=== PATIENT | female | born 1965 | race Caucasian/White ===

== ENCOUNTER 2016-03-03 14:04 | Outpatient (CLI) | payer BC ==
[~2016-03-03 14:04] MED LIST: DOLOPHINE10 MG PO; EPIPEN 2-PAK0.3 MG IM; LEVOTHYROXINE75 MCG PO; MILK THISTLE140 MG PO; NEXIUM40 M1 PO; OXYCODONE HCL E15 MG PO; PHENERGAN12.5 M1 PO; PROZAC40 MG PO; SENOKOT8.6 MG PO; SUCRALFATE1 GM PO; SUMATRIPTAN SUC50 MG PO
--- NOTE | 2016-03-03 14:29 | DIAGNOSTIC IMAGING REPORT ---
PROCEDURE: XR CHEST 2 VIEW INDICATION: COUGH TECHNIQUE: PA and lateral views. COMPARISON: None. FINDINGS: Lungs are clear. Heart and mediastinum are normal. Thorax is normal. IMPRESSION: 1. Negative chest.
== END 2016-03-03 23:00 ==
LOC: XR SRH 14:04
DX: R05 Cough (principal)

== ENCOUNTER 2016-04-06 19:45 | Emergency (ER) | payer BC ==
--- NOTE | 2016-04-06 22:28 | ED ORDER SUMMARY ---
..... Patient: DAVI MEDELLIN OrderSheet [facility] VisitID: [id number] [address] [place] [address] 50y, F Registration Date/Time: 04/06/2016 ORDER SHEET Weight: 69.4 kg (measured) Allergies: Codeine, Morphine Sulfate GENERAL ORDERS: Booking Agent (Continuous) (LOC) (20:05 04/06/2016 Prisca R.N. verbal order read back to Sushma RENEE) (20:05 Nehemiaselli R.N.) CBC w Diff Urgent (20:05 04/06/2016 Prisca R.N. verbal order read back to Sushma RENEE) (20:05 Prisca R.N.) CMP Urgent (20:05 04/06/2016 Prisca R.N. verbal order read back to Sushma RENEE) (20:05 Nehemiaselli R.N.) UA-Culture if indicated Urgent (20:05 04/06/2016 Prisca R.N. verbal order read back to Sushma RENEE) (Ack 20:11 [employer] ER Drilling Assistant) (22:43 JBullard R.N.) (Cancelled: Unable to [id number]:43 JBullard R.N.) Urine Urgent (20:05 04/06/2016 Prisca R.N. verbal order read back to Sushma RENEE) (Ack 20:11 [employer] ER Drilling Assistant) (22:43 JBullard R.N.) (Cancelled: Unable to Ujbfhql75:43 JBullard R.N.) Oxygen (2 L/min) (NC) (20:05 04/06/2016 Prisca R.N. verbal order read back to Sushma RENEE) (20:05 Prisca R.N.) Pulse oximeter (20:05 04/06/2016 Prisca R.N. verbal order read back to Sushma RENEE) (20:05 Prisca R.N.) EKG - ER Stat (20:05 04/06/2016 Prisca R.N. verbal order read back to Sushma RENEE) (20:05 Prisca R.N.) POC Glucose (20:05 04/06/2016 Prisca R.N. verbal order read back to Sushma RENEE) (20:05 Prisca R.N.) POC Glucose (21:03 04/06/2016 Sushma RENEE) (21:20 IJurca ER Tech1) MEDICATION ORDERS: IV FLUIDS: IV Saline Lock (20:02 04/06/2016 Prisca R.N. verbal order read back to Sushma RENEE) (20:06 Prisca R.N.) Narcan IV 0.4 mg (HIGH ALERT MEDICATION, NOW) (20:03 04/06/2016 Prisca R.N. verbal order read back to Sushma RENEE) (20:09 Prisca R.N.) D-50 IV 25 gm (NOW, IVP) (20:03 04/06/2016 Prisca R.N. verbal order read back to Sushma RENEE) (20:08 Prisca R.N.) IV Saline Lock (20:05 04/06/2016 Prisca R.N. verbal order read back to Sushma RENEE) (20:07 Prisca R.N.) ORDER SHEET NOTES: [Electronically signed by Zelalem Queen R.N. (22:45 04/06/2016)] [Electronically signed by Mar Clifford MD (13:46 04/10/2016)] [Electronically locked/signed by Zelalem Queen R.N. (22:45 04/06/2016)]
--- NOTE | 2016-04-06 22:28 | ED NURSING NOTES ---
Clinical Report - Nurses [facility] [place] [address] 04/06/2016 19:47 Patient: DAVI MEDELLIN TRIAGE <<STRICKEN ENTRY-- Triage time 19:50 Apr 06 2016. Acuity: LEVEL 3. Chief Complaint: DRUG OVERDOSE and ACCIDENTAL INGESTION. Alert. LOUISE COMA SCORE: Louise Coma Scale: 15- eyes open spontaneously (4); best verbal response- oriented x 4 (5); best motor response- obeys commands (6). --20:18 Mayank Baugh R.N. --END STRIKE>> Correction --22:19 Mayank Baugh R.N. 19:57 04/06/16. BP: 107/61. HR: 78. RR: 16. O2 saturation: 95% on nasal cannula at 2 liters/minute. Temp: 97.5 F. Pain level now: 0/10. --20:18 Mayank Baugh R.N. Chief Complaint: (Hypoglycemia and Lethargic Affect). --22:24 Mayank Baugh R.N. Weight: 69.4 kg measured. Height/Length: 66 inches Per Patient. BMI: 24.7. --19:59 Mayank Baugh R.N. Medications Levoxyl Oral 75 mcg, daily. NexIUM Oral 20 mg, daily. --20:12 Mayank Baugh R.N. Methadone HCl Oral 55mg, daily. --20:13 Mayank Baugh R.N. OxyCODONE HCl Oral 15mg, as needed (breakthrough pain). --20:13 Mayank Baugh R.N. Allergies Codeine. Morphine Sulfate. --20:12 Mayank Baugh R.N. History Arrived by private vehicle. Historian: patient. ( Possible OD). This occurred just prior to arrival and today. Admits to having hallucinations. No suicidal thoughts. 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 PAST MEDICAL HX: Last normal menstrual period was 3 weeks ago. Denies current . SOCIAL HX: Light tobacco smoker (cigarette)- less than 1/2 a pack per day. No alcohol use or drug use. No infectious disease exposure. ABUSE ASSESSMENT: No report of abuse. FALL RISK ASSESSMENT: Fall risk assessment completed. No fall risk identified. NUTRITIONAL RISK ASSESSMENT: The nutritional risk assessment revealed no deficiencies. FUNCTIONAL ASSESSMENT: Functional assessment: no impairments noted. LEARNING NEEDS ASSESSMENT: The learning needs assessment revealed no barriers. SKIN INTEGRITY ASSESSMENT: Skin integrity risk assessment completed. No skin integrity risk identified. --20:18 Mayank Baguh R.N. ( Lethargic affect and Hypoglycemia.). --22:20 Mayank Baugh R.N. PROBLEMS: Anxiety Reaction. Gastroesophageal Reflux Disease. Hypokalemia. Pain management. Insomnia. Mental Illness. --20:16 Mayank Baugh R.N. Bipolar Disorder [RuleOut]. --20:16 Mayank Baugh R.N. ADDITIONAL SURGERIES: (R) leg. Adenoidectomy. Tonsillectomy. --20:16 Mayank Baugh R.N. Interventions ID band on patient. To treatment room. --20:18 Mayank Baugh R.N. PHYSICAL ASSESSMENT Ambulatory to room. GENERAL / NEURO / PSYCH: Alert. Oriented X 4. Patient appears calm and cooperative. Gag reflex present. Speech within normal limits. RESPIRATORY: Respirations not labored. Breath sounds within normal limits. CVS: Normal sinus rhythm noted. GI / : Abdomen soft and nontender. Bowel sounds within normal limits. SKIN: Skin intact. Skin is warm and dry. Skin color is within normal limits. --20:19 Mayank Baugh R.N. NURSING PROGRESS NOTES 19:51 04/06/2016 Site #1 started via IV in the left antecubital space with an 20g angiocath, with aseptic technique and good blood return; two attempts. Blood drawn: rainbow set. Labeled in the presence of the patient and sent to the lab. Saline lock flushed with 10 mL saline. --20:06 Mayank Baugh R.N. 19:57 04/06/2016 Site #2 started via IV in the right hand with an 22g angiocath, with aseptic technique and good blood return; one attempt. Blood drawn: rainbow set. Labeled in the presence of the patient and sent to the lab. Saline lock flushed with 10 mL saline (start by Edie Paniagua RN). --20:07 Mayank Baugh R.N. 19:58 04/06/2016 D-50 IVP 1 Amp given over 4 minute(s) via site #2. Allergies verified and confirmed 5 rights. IV patency established. IV site checked: no pain, redness, or swelling. IV flushed thoroughly pre- and post-medication administration. IVP given by RN. --20:08 Mayank Baugh R.N. 19:59 04/06/2016 Narcan (Naloxone HCl) IVP 0.4 mg given over 2 minute(s) via site #1. Allergies verified and confirmed 5 rights. IV patency established. IV site checked: no pain, redness, or swelling. IV flushed thoroughly pre- and post-medication administration. IVP given by RN. --20:09 Mayank Baugh R.N. Patient gowned. Reassurance given. Patient identifiers checked. Call light placed in reach. Side rails up. Bed placed in lowest position. Brakes of bed on. Patient ready for evaluation- chart flagged and ED physician notified. --20:20 Mayank Baugh R.N. Point of care testing: performed by nurse. Glucose: 170. Result shown to the ED physician. --20:24 Mayank Baugh R.N. EKG time: (2025). EKG was ordered, performed by a tech and shown to the ED physician. --20:39 [facility], Tech1 Point of care testing: performed by tech. Glucose: 87. Result shown to the ED physician and RN. --21:21 Jos Garneraiah, ER Tech1. DISPOSITION / DISCHARGE Departure time: 2243. No learning barriers present. Discharge instructions provided and reviewed with the patient and spouse. Reviewed warnings. Reviewed medication(s). Treatments reviewed. Reviewed referrals. Reviewed diet. Activity restrictions reviewed. Patient and spouse verbalized understanding. Written instructions provided in Bengali. The patient was discharged by the physician. She was discharged home and accompanied by spouse. She left the Emergency Department ambulatory and via private vehicle. Spouse driving. --22:45 Zelalem Queen R.N. 22:43 04/06/16. BP: 110/56. HR: 66. RR: 14. O2 saturation: 99%. Temp: 98 F. Pain level now 0/10. --22:45 Zelalem Queen R.N. Locked/Released at 04/06/2016 22:45 by Zelalem Queen R.N.
--- NOTE | 2016-04-06 22:28 | ED CLINICAL REPORT ---
Clinical Report - Physicians/Mid Levels [facility] [address] [place] [address] 04/06/2016 19:47 Patient: DAVI MEDELLIN Time Seen: 19:55. Arrived- By private vehicle. Historian- patient. HISTORY OF PRESENT ILLNESS Chief Complaint: CHANGED MENTAL STATUS. The patient has been confused and "felt strange" and is described as having decreased responsiveness. This started just prior to arrival and is still present. The patient was not found unresponsive. No history of chronic dementia. No alcohol recently, recent drug use or medication given prior to arrival. ( states he and pt were watching TV and "getting playful" when pt stated she was beginning to feel "strange". She reported hallucinating, and then began staring off and not responding. is not aware of pt taking extra oxycodone or methadone (pt is on these for chronic leg pain after multiple surgeries). No history of hypoglycemic episodes previously. Pt has been nauseated for a few days, and has not been eating anything.). No weakness, numbness or recent fall. No difficulty walking. Usually is alert and oriented X3 and usually has normal mobility. Similar symptoms previously: None. Recent medical care: Not recently seen/assessed. REVIEW OF SYSTEMS No fever, headache, head injury, dizziness or chest pain. No difficulty breathing, cough, sputum production, blurred vision or sore throat. No abdominal pain, diarrhea, black stools, difficulty with urination or skin rash. No joint pain, vomiting, bloody stools or back pain. The patient has had nausea. Pt is able to answer ROS questions later in visit. All systems otherwise negative, except as recorded above. PAST HISTORY Problems: Chronic pain. Bipolar Disorder. Anxiety Reaction. Gastroesophageal Reflux Disease. Hypokalemia. Insomnia. Immunizations. LNMP - Last Normal Menstrual Period. Additional Surgeries: (R) leg. Adenoidectomy. Tonsillectomy. Medications: OxyCODONE HCl Oral 15mg, as needed (breakthrough pain). Methadone HCl Oral 55mg, daily. Levoxyl Oral 75 mcg, daily. NexIUM Oral 20 mg, daily. Allergies: Codeine. Morphine Sulfate. SOCIAL HISTORY Smoker- current status unknown. No alcohol use or drug use. ADDITIONAL NOTES The nursing notes have been reviewed. PHYSICAL EXAM Vital Signs: 04/06/2016 19:57 BP: 107/61. HR: 78. RR: 16. O2 saturation: 95%. Temp: 97.5 F. Pain level now: 0/10. Have been reviewed. Appearance: No acute distress. Lethargic. Head: Head atraumatic. Eyes: Pupils equal, round and reactive to light. ENT: Normal ENT inspection. Airway intact. Moist mucous membranes. Neck: Normal inspection. CVS: Normal heart rate and rhythm. Heart sounds normal. Pulses normal. Respiratory: No respiratory distress. Breath sounds normal. Abdomen: Soft and nontender. Back: Normal inspection. Skin: Skin warm and dry. Normal skin color. No rash. Normal skin turgor. Extremities: No lower extremity edema. Neuro: Alertness is decreased(drowsy). No motor deficit. No sensory deficit. LABS, X-RAYS, AND EKG EKG: EKG time: (2025). No acute process. No acute ischemia. Normal sinus rhythm. Normal P waves. Normal RUPERT. Normal QRS complex. Normal axis. Normal ST and T waves, QT and QTc. Prior EKG unavailable. The study has been interpreted contemporaneously by me. The study has been independently viewed by me. The EKG appears to be a good tracing. Rhythm Strip #1: Time: (2018). Rate= 82. Normal sinus rhythm. Regular rhythm. Narrow QRS complexes. No ectopy. Conduction normal. Normal ST segments and T waves. The study was interpreted by me. Laboratory Tests: CBC w Diff: (TWAN: 04/06/2016 19:58) ( MsgRcvd 04/06/2016 20:21) Final results Test Result Flag Units (Reference) WHITE BLOOD COUNT 9.3 K/uL (4.5-11.5) RED BLOOD COUNT 4.29 M/uL (4.00-5.20) HEMOGLOBIN 12.9 gm/dL (12.0-16.0) HEMATOCRIT 39.0 % (36.0-46.0) MEAN CELL VOLUME 91 fL (80-100) MEAN CORPUSCULAR HGB 30 pg (26-34) MEAN CORPUSCULAR HGB CONC 33 g/dL (31-37) RED CELL DISTRIBUTION WIDTH 15.0 H % (11.6-14.8) PLATELET COUNT 317 K/uL (150-400) NEUTROPHIL % 60.6 % (50-75) LYMPH % 23.4 L % (25-40) MONO % 10.5 % (3-14) EOSINOPHIL % 4.7 H % (0-4) BASOPHIL % 0.8 % (0-2) CMP: (TWAN: 04/06/2016 19:58) ( MsgRcvd 04/06/2016 20:30) Final results Test Result Flag Units (Reference) GLUCOSE 37 *L mg/dL (70-110) CRITICAL RESULTS CALLEDCalled to JESS WILKS R.N. 04/06/162028Were 2 patient identifiers used? YWas the result read back? Y BUN 10 mg/dL (7-18) CREATININE 0.6 mg/dL (0.6-1.3) Estimated GFR >60 mL/min Estimated GFR- >60 mL/min Note: Persistent reduction over 3 months in eGFR<60 mL/min/1.73 m2 defines CKD. Patients with eGFR values>=60 mL/min/1.73 m2 may also have CKD if evidence ofpersistent proteinuria. Additional information may be foundat www.kidney.org. SODIUM 131 L mmol/L (136-145) POTASSIUM 4.1 mmol/L (3.5-5.1) SLIGHT HEMOLYSIS PRESENT CHLORIDE 95 L mmol/L (98-107) CARBON DIOXIDE 24 mmol/L (21-32) CALCIUM 8.4 L mg/dL (8.5-10.1) TOTAL PROTEIN 7.7 g/dL (6.4-8.2) ALBUMIN 3.7 g/dL (3.3-5.0) BILIRUBIN, TOTAL 0.2 mg/dL (0.0-1.0) ALKALINE PHOSPHATASE 71 U/L (46-116) AST (SGOT) 28 U/L (15-37) ALT (SGPT) 26 U/L (12-78) . Pulse Oximetry: 04/06/2016 19:57 O2 saturation: 95%. (FIO2 - room air). Interpretation: normal. PROGRESS AND PROCEDURES Course of Care: PT was evaluated immediately upon arrival in the ED. IV's were immediately placed, and pt was given 0.4 mg of Narcan, after which she became more awake, but not more coherent. At the same time, pt's blood sugar was found to be <30, so pt was given IV D-50, 1 amp. She did become coherent after this, and was able to give more history. Pt was observed in the ED and serial blood sugars were checked, without further hypoglycemia. Pt's sugars were noted to be trending down, however, so she was given a meal to eat. Remainder of work-up was negative. Pt's last blood glucose level was normal, and I did feel she was stable for d/c home. I have advised her that if she has any further hypoglycemic episodes, she will need further testing to determine the cause. Patient and spouse counseled in person regarding the patient's stable condition, test results, diagnosis and need for follow-up. Concerns were addressed. Old medical records reviewed. Disposition: Discharged. Condition: stable and improved. CLINICAL IMPRESSION Hypoglycemia without coma. Not associated with type 1 diabetes or type 2 diabetes. INSTRUCTIONS Warnings: GENERAL WARNINGS: Return or contact your physician immediately if your condition worsens or changes unexpectedly, if not improving as expected, or if other problems arise. Your Current Medications: CONTINUE TAKING THE FOLLOWING MEDICATIONS: Levoxyl Oral : 75 mcg daily. Methadone HCl Oral : 55mg daily. NexIUM Oral : 20 mg daily. OxyCODONE HCl Oral : 15mg, prn, breakthrough pain. Prescription Medications: Zofran (orally disintegrating tablets) 4 mg: take 1-2 orally every 6 hours as needed for nausea. Dispense fifteen (15). No refill. Substitution is permissible. Follow-up: Follow up with your doctor in. Call for the next available appointment. Reason for referral: Follow up hypoglycemia/ER visit. Understanding of the discharge instructions verbalized by patient and family. (Electronically signed by Mar Clifford MD 04/10/2016 13:46)
--- NOTE | 2016-04-06 22:28 | ED ORDER SUMMARY ---
..... Patient: DAVI MEDELLIN OrderSheet [facility] VisitID: [id number] [address] [place] [address] 50y, F Registration Date/Time: 04/06/2016 ORDER SHEET Weight: 69.4 kg (measured) Allergies: Codeine, Morphine Sulfate GENERAL ORDERS: Java Portal Developer (Continuous) (LOC) (20:05 04/06/2016 Prisca R.N. verbal order read back to Sushma RENEE) (20:05 Nehemiaselli R.N.) CBC w Diff Urgent (20:05 04/06/2016 Prisca R.N. verbal order read back to Sushma RENEE) (20:05 Prisca R.N.) CMP Urgent (20:05 04/06/2016 Prisca R.N. verbal order read back to Sushma RENEE) (20:05 Nehemiaselli R.N.) UA-Culture if indicated Urgent (20:05 04/06/2016 Prisca R.N. verbal order read back to Sushma RENEE) (Ack 20:11 [employer] ER Registration Representative) (22:43 JBullard R.N.) (Cancelled: Unable to Kyuopbt87:43 JBullard R.N.) Urine Urgent (20:05 04/06/2016 Prisca R.N. verbal order read back to Sushma RENEE) (Ack 20:11 [employer] ER Registration Representative) (22:43 JBullard R.N.) (Cancelled: Unable to Nldipol70:43 JBullard R.N.) Oxygen (2 L/min) (NC) (20:05 04/06/2016 Prisca R.N. verbal order read back to Sushma RENEE) (20:05 Prisca R.N.) Pulse oximeter (20:05 04/06/2016 Prisca R.N. verbal order read back to Sushma RENEE) (20:05 Prisca R.N.) EKG - ER Stat (20:05 04/06/2016 Prisca R.N. verbal order read back to Sushma RENEE) (20:05 Prisca R.N.) POC Glucose (20:05 04/06/2016 Prisca R.N. verbal order read back to Sushma RENEE) (20:05 Prisca R.N.) POC Glucose (21:03 04/06/2016 Sushma RENEE) (21:20 IJurca ER Tech1) MEDICATION ORDERS: IV FLUIDS: IV Saline Lock (20:02 04/06/2016 Prisca R.N. verbal order read back to Sushma RENEE) (20:06 Prisca R.N.) Narcan IV 0.4 mg (HIGH ALERT MEDICATION, NOW) (20:03 04/06/2016 Prisca R.N. verbal order read back to Sushma RENEE) (20:09 Prisca R.N.) D-50 IV 25 gm (NOW, IVP) (20:03 04/06/2016 Prisca R.N. verbal order read back to Sushma RENEE) (20:08 Prisca R.N.) IV Saline Lock (20:05 04/06/2016 Prisca R.N. verbal order read back to Sushma RENEE) (20:07 Prisca R.N.) ORDER SHEET NOTES: [Electronically signed by Zelalem Queen R.N. (22:45 04/06/2016)] [Electronically signed by Mar Clifford MD (13:46 04/10/2016)] [Electronically locked/signed by Zelalem Queen R.N. (22:45 04/06/2016)]
--- NOTE | 2016-04-10 13:46 | ED MED RECONCILIATION SUMMARY ---
Patient: DAVI MEDELLIN Medication Reconciliation Report [facility] VisitID: [id number] [address] [place] [address] 50y, F Registration Date/Time: 04/06/2016 Weight: 69.4 kg Height/Length: 66 in. BMI: 24.7 ALLERGIES: Codeine, Morphine Sulfate The patient's Home Medications are listed below: CONTINUE TAKING THE FOLLOWING MEDICATIONS: Levoxyl Oral 75 mcg, daily Methadone HCl Oral 55mg, daily NexIUM Oral 20 mg, daily OxyCODONE HCl Oral 15mg, breakthrough pain The source(s) of the original Home Medication information: Not obtained. The following Medications were given to the patient in the Emergency Department: D-50 [IVP] IVP 1 Amp, administered: 04/06/2016 7:58:00 PM Narcan [IVP] IVP 0.4 mg, administered: 04/06/2016 7:59:00 PM The following Medications were prescribed to the patient: Zofran (orally disintegrating tablets) 4 mg: take 1-2 orally every 6 hours as needed for nausea. Dispense fifteen (15). No refill. Substitution is permissible. -- Mar Clifford MD
--- NOTE | 2016-04-10 13:46 | ED DISCHARGE INSTRUCTIONS ---
Patient: DAVI MEDELLIN General Instructions [facility] VisitID: [id number] [place] [address] 50y, F Registration Date/Time: 04/06/2016 Hypoglycemia without coma. Not associated with type 1 diabetes or type 2 diabetes. INSTRUCTIONS Warnings: GENERAL WARNINGS: Return or contact your physician immediately if your condition worsens or changes unexpectedly, if not improving as expected, or if other problems arise. Your Current Medications: CONTINUE TAKING THE FOLLOWING MEDICATIONS: Levoxyl Oral : 75 mcg daily. Methadone HCl Oral : 55mg daily. NexIUM Oral : 20 mg daily. OxyCODONE HCl Oral : 15mg, prn, breakthrough pain. Prescription Medications: Zofran (orally disintegrating tablets) 4 mg: take 1-2 orally every 6 hours as needed for nausea. Dispense fifteen (15). No refill. Substitution is permissible. Follow-up: Follow up with your doctor in. Call for the next available appointment. Reason for referral: Follow up hypoglycemia/ER visit. Understanding of the discharge instructions verbalized by patient and family. ADDITIONAL INFORMATION Hypoglycemic Reaction [Non-Diabetic] You have had an episode of LOW BLOOD SUGAR (hypoglycemia). A single episode of hypoglycemia does not mean that you are diabetic or that this problem will recur. There are many causes for low blood sugar. These include eating highly refined carbohydrate foods, drinking too much alcohol, intense exercise, fatigue, stress, poor diet, and certain illnesses. Some people are sensitive to the following, which can also lower blood sugar: Tobacco, caffeine and certain medicines [aspirin, Haldol (haloperidol), Darvon (propoxyphene), Thorazine (chlorpromazine), Inderal (propranolol), Norpace (disopyramide)]. A class of medicine called beta blockers is used for high blood pressure, rapid heart rates and other conditions. Beta blockers may prevent the early symptoms of low blood sugar. In that case, you would not know that you were having a reaction until your blood sugar becomes dangerously low. If you are taking a beta mohsen and are prone to low blood sugar, talk to your doctor about switching to a different class. The beta mohsen class includes Inderal (propranolol), Tenormin (atenolol), Lopressor (metoprolol), Corgard (nadolol), Trandate & Normodyne (labetalol) and Coreg (carvedilol). Home Care: Rest today and resume a normal diet. Eliminate any of the above known causes where possible. The proper diet for true hypoglycemia (diagnosed with a Glucose Tolerance Test) is high protein (20% of calories), low carbohydrate (50% of calories) and moderate fat (30% of calories) in six small meals per day. If this is your first episode of low blood sugar or if you have not yet been tested with a Glucose Tolerance Test, eat small frequent meals rather than fewer large meals. Limit carbohydrates during the next 1-2 days to avoid recurrence of low blood sugar. Follow up with your doctor as described below. It is important to learn the warning signals your body gives as your blood sugar starts to drop. See below. If you are prone to low blood sugar, carry a source of high sugar food with you in case you get symptoms of low blood sugar again. At the first sign of low blood sugar, eat the sugar source to raise your blood sugar while you seek medical help. Examples of high sugar foods include: Glucose tablets (found at most drug stores), non-diet cola drinks (Coke, Pepsi, etc.), milk chocolate candies, hard candies, orange juice or apple juice with added sugar. If this does not improve your symptoms within twenty minutes, go to an emergency department. If you are prone to severe hypoglycemic spells, wear a medical alert bracelet or carry a card in your wallet describing this condition. In the event that you have a severe hypoglycemic reaction and are unable to give this information, it will help medical personnel provide proper care. Follow Up with your doctor or as advised by our staff for further testing if the cause of your low blood sugar is not clear or if this problem recurs. A Glucose Tolerance Test is the best way to correctly diagnose Hypoglycemia. Get Prompt Medical Attention if any of the following occur: Signs of LOW BLOOD SUGAR: Fatigue, headache Trembling, excess sweating, hunger, feeling anxious or restless Vision changes Drowsiness, weakness, confusion or loss of consciousness You have been given the following additional information: Hypoglycemia, Non Diabetic (Electronically signed by Mar Clifford MD 04/10/2016 13:46)
--- NOTE | 2016-04-10 13:46 | ED MAR SUMMARY ---
..... Medication Administration Record [facility] [address] [place] [address] Patient: DAVI MEDELLIN Visit ID: [id number] 50y, F Weight: 69.4 kg Height/Length: 66 in BMI: 24.7 ALLERGIES: Codeine, Morphine Sulfate Given 19:58 04/06/2016 Mayank Baugh RMuluN. Medication Administered: D-50 [IVP], Dose: 1 Amp IVP over 4 minute(s), Site: #2 right hand. Medication Ordered: D-50 IV 25 gm (NOW, IVP). Given 19:59 04/06/2016 Mayank Baugh, R.N. Medication Administered: NARCAN [IVP] (NALOXONE HCL), Dose: 0.4 mg IVP over 2 minute(s), Site: #1 left AC. Medication Ordered: Narcan IV 0.4 mg (HIGH ALERT MEDICATION, NOW).
--- NOTE | 2016-04-10 13:46 | ED MED RECONCILIATION SUMMARY ---
Patient: DAVI MEDELLIN Medication Reconciliation Report [facility] VisitID: [id number] [address] [place] [address] 50y, F Registration Date/Time: 04/06/2016 Weight: 69.4 kg Height/Length: 66 in. BMI: 24.7 ALLERGIES: Codeine, Morphine Sulfate The patient's Home Medications are listed below: CONTINUE TAKING THE FOLLOWING MEDICATIONS: Levoxyl Oral 75 mcg, daily Methadone HCl Oral 55mg, daily NexIUM Oral 20 mg, daily OxyCODONE HCl Oral 15mg, breakthrough pain The source(s) of the original Home Medication information: Not obtained. The following Medications were given to the patient in the Emergency Department: D-50 [IVP] IVP 1 Amp, administered: 04/06/2016 7:58:00 PM Narcan [IVP] IVP 0.4 mg, administered: 04/06/2016 7:59:00 PM The following Medications were prescribed to the patient: Zofran (orally disintegrating tablets) 4 mg: take 1-2 orally every 6 hours as needed for nausea. Dispense fifteen (15). No refill. Substitution is permissible. -- Mar Clifford MD
--- NOTE | 2016-04-10 13:46 | ED MAR SUMMARY ---
..... Medication Administration Record [facility] [address] [place] [address] Patient: DAVI MEDELLIN Visit ID: [id number] 50y, F Weight: 69.4 kg Height/Length: 66 in BMI: 24.7 ALLERGIES: Codeine, Morphine Sulfate Given 19:58 04/06/2016 Mayank Baugh RMuluN. Medication Administered: D-50 [IVP], Dose: 1 Amp IVP over 4 minute(s), Site: #2 right hand. Medication Ordered: D-50 IV 25 gm (NOW, IVP). Given 19:59 04/06/2016 Mayank Baugh, R.N. Medication Administered: NARCAN [IVP] (NALOXONE HCL), Dose: 0.4 mg IVP over 2 minute(s), Site: #1 left AC. Medication Ordered: Narcan IV 0.4 mg (HIGH ALERT MEDICATION, NOW).
== END 2016-04-06 22:40 | disposition home or self-care (01) ==
LOC: ED SRH 19:45
DX: E16.2 Hypoglycemia, unspecified (principal); K21.9 Gastro-esophageal reflux disease without esophagitis; Z79.891 Long term (current) use of opiate analgesic; Z79.899 Other long term (current) drug therapy; Z88.5 Allergy status to narcotic agent
CPT/HCPCS: 90098; 90100; 95059

== ENCOUNTER 2016-09-01 22:25 | Emergency (ER) | payer BC ==
--- NOTE | 2016-09-02 00:56 | ED CLINICAL REPORT ---
Clinical Report - Physicians/Mid Levels [facility] [address] [place] [address] 09/01/2016 22:27 Patient: DAVI MEDELLIN Time Seen: 22:54; initial patient contact. Arrived- By private vehicle. Historian- patient. HISTORY OF PRESENT ILLNESS Chief Complaint: ANXIOUS and MEDICATION REFILL. This started about 3 days ago. No situational problems or recent drug use or alcohol consumption. She has not exhibited a behavior change or is compliant with medication. Has not been sleeping. She has had anxiety. No unusual behavior, paranoia, delusions, suicidal thoughts or self-injury inflicted. No hallucinations. The symptoms are described as moderate. No injury is present. Additional history - H/O Bipolar D/O. Currently manic. Out of Clonazepam x 3 days. Similar symptoms previously: Recent medical care: Not recently seen/assessed. REVIEW OF SYSTEMS No chest pain, palpitations, vomiting or diarrhea. All systems otherwise negative, except as recorded above. PAST HISTORY ( Hypoglycemia. Chronic pain. Bipolar Disorder. Anxiety Reaction. Gastroesophageal Reflux Disease. Hypokalemia. Pain management. Insomnia. Mental Illness.. Bipolar Disorder. ADDITIONAL SURGERIES: (R) leg. Adenoidectomy. Tonsillectomy.). SOCIAL HISTORY Never smoker. No alcohol use or drug use. Has social support. Has place to stay. ADDITIONAL NOTES The nursing notes have been reviewed. PHYSICAL EXAM Vital Signs: 09/01/2016 22:54 BP: 144/70. HR: 84. RR: 14. O2 saturation: 100%. Temp: 98.1 F. Pain level now: 0/10. Have been reviewed. Hypertensive. Heart rate normal. Respiratory rate normal. Temperature normal. Oxygen saturation normal. Appearance: Alert. No acute distress. Appearance is normal. CVS: Normal heart rate and rhythm. Heart sounds normal. Respiratory: No respiratory distress. Breath sounds normal. Psych / Neuro: Oriented X 3. Mood and affect normal. Speech normal. Cognition normal. Thought process and content normal. Insight and judgement normal. PROGRESS AND PROCEDURES Course of Care: Anxiety much better w/ Ativan 1 mg PO. Disposition: Discharged home in good and improved condition. Condition: good. CLINICAL IMPRESSION Acute and chronic bipolar disorder. INSTRUCTIONS Your Current Medications: CONTINUE TAKING THE FOLLOWING MEDICATIONS: ClonazePAM Oral. Gabapentin Oral. LaMICtal Oral. Levoxyl Oral. NexIUM Oral : 20 mg daily. PROzac Oral. Prescription Medications: Clonazepam 1 mg tablet: Take 1 orally every 8 hours as needed for anxiety. Dispense fifteen (15). No refills. Follow-up: Follow up with your doctor in about three days. Call for an appointment. Screening today revealed the patient's blood pressure to be in the pre-hypertensive range. The patient should follow up with a primary care provider for blood pressure management. (Electronically signed by Logan Garland Dr. 09/02/2016 8:55)
--- NOTE | 2016-09-02 00:56 | ED NURSING NOTES ---
Clinical Report - Nurses [facility] [place] [address] 09/01/2016 22:27 Patient: DAVI MEDELLIN TRIAGE Triage time 22:52. Acuity: LEVEL 3. Chief Complaint: ANXIETY and ("manic episode"). 23:02 09/01/16. Alert. No acute distress. MARIA ESTHER COMA SCORE: [place] Coma Scale: 15- eyes open spontaneously (4); best verbal response- oriented x 4 (5); best motor response- obeys commands (6). --23:02 Karoline Garcia R.N. 22:54 09/01/16. BP: 144/70 taken on the left arm, while sitting. HR: 84. RR: 14. O2 saturation: 100% on room air. Temp: 98.1 F. Pain level now: 0/10. Additional comments: patient reports no pain, but "severe muscle tension and discomfort". --23:02 Karoline Garcia R.N. Weight: 62.5 kg stated. Height/Length: 66 inches Per Patient. BMI: 22.3. --22:59 Karoline Garcia R.N. Medications Levoxyl Oral. --22:57 Karoline Garcia R.N. NexIUM Oral 20 mg, daily. --22:57 Karoline Garcia R.N. PROzac Oral. --22:57 Karoline Garcia R.N. Gabapentin Oral. --22:57 Karoline Garcia R.N. LaMICtal Oral. --22:57 Karoline Garcia R.N. ClonazePAM Oral. --22:58 Karoline Garcia R.N. Allergies Codeine. Morphine Sulfate. --22:58 Karoline Garcia R.N. History Arrived by private vehicle. Historian: patient and family. Accompanied by family and spouse. Primary physician (Dr Early). Onset: today. ( Patient states she has anxiety and bipolar disorder. She reports she ran out of clonazepam "about three days ago" and didnt think it would be a big deal, but is feeling very jittery and cant sleep.). She has had anxiety and sleeping difficulties and has been confused. ( "muscle tension, discomfort"). 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 PAST MEDICAL HX: Immunizations: up-to-date. Denies current . SOCIAL HX: Never smoker. No alcohol use or drug use. FALL RISK ASSESSMENT: Fall risk assessment completed. No fall risk identified. NUTRITIONAL RISK ASSESSMENT: The nutritional risk assessment revealed no deficiencies. FUNCTIONAL ASSESSMENT: Functional assessment: no impairments noted. LEARNING NEEDS ASSESSMENT: The learning needs assessment revealed no barriers. SKIN INTEGRITY ASSESSMENT: Skin integrity risk assessment completed. No skin integrity risk identified. --23:02 Karoline Garcia R.N. PROBLEMS: Hypoglycemia. Chronic pain. Bipolar Disorder. Anxiety Reaction. Gastroesophageal Reflux Disease. Hypokalemia. Pain management. Insomnia. Mental Illness. Immunizations. LNMP - Last Normal Menstrual Period. --22:58 Karoline Garcia R.N. Bipolar Disorder [RuleOut]. --22:58 Karoline Garcia R.N. ADDITIONAL SURGERIES: (R) leg. Adenoidectomy. Tonsillectomy. --22:58 Karoline Garcia R.N. Interventions ID band on patient. To treatment room. --23:02 Karoline Garcia R.N. PHYSICAL ASSESSMENT 23:03 09/01/16. Ambulatory to room. GENERAL / NEURO / PSYCH: Alert. Oriented X 4. Appears in no acute distress. Affect appears normal. Patient appears calm and cooperative. ( patient appears jittery). RESPIRATORY: Respirations not labored. CVS: Capillary refill less than 2 seconds. GI / : Abdomen soft and nontender. SKIN: Skin intact. Skin is warm and dry. Skin color is within normal limits. --23:03 Karoline Garcia R.N. NURSING PROGRESS NOTES 23:04 09/01/16. Monitoring of patient in place. Patient gowned. Head of bed elevated. Two patient identifiers checked. Call light placed in reach. Side rails up x 2. Bed placed in lowest position. Brakes of bed on. Patient ready for evaluation- chart flagged and notification provided. --23:04 Karoline Garcia R.N. 23:46 09/01/2016 Ativan (LORazepam) PO Tablets 1 mg given. Allergies verified, confirmed 5 rights and sedative warning given to the patient and patient's family. --23:46 RebeccaNicolle magana 00:08 09/02/16. BP: 127/64. HR: 75. RR: 15. O2 saturation: 97% on room air. Pain level now: 0/10. --00:09 Karoline Garcia R.N. ( patient reports feeling "really hot". Ice pack given for improved comfort.). --00:13 Karoline Garcia R.N. 00:19 09/02/2016 Ativan PO Response: no adverse reaction the patient feels better. --00:58 Karoline Garcia R.N. 00:43 09/02/16. Reassessment after medication administered. She is calm and resting quietly and has had no adverse reaction. Overall patient status- she states feels better. Patient and family informed about reason for wait. --00:43 Karoline Garcia R.N. DISPOSITION / DISCHARGE 01:04. Condition at departure: improved. No learning barriers present. Discharge instructions provided and reviewed with the patient and spouse. Reviewed medication(s). Patient and spouse verbalized understanding. Written instructions provided in [place]. The patient was discharged home and accompanied by spouse. She left the Emergency Department ambulatory and via private vehicle. Spouse driving. --01:06 Karoline Garcia R.N. 00:08 09/02/16. BP: 127/64. HR: 75. RR: 15. O2 saturation: 97% on room air. Pain level now: 0/10. --01:06 Karoline Garcia R.N. 01:07 09/02/16. Temp: deferred. --01:07 Karoline Garcia R.N. Locked/Released at 09/02/2016 1:07 by Karoline Garcia R.N.
--- NOTE | 2016-09-02 00:56 | ED ORDER SUMMARY ---
..... Patient: DAVI MEDELLIN OrderSheet [facility] VisitID: [id number] [address] [place] [address] 50y, F Registration Date/Time: 09/01/2016 ORDER SHEET Weight: 62.5 kg (stated) Allergies: Codeine, Morphine Sulfate GENERAL ORDERS: MEDICATION ORDERS: Ativan PO 1 mg (HIGH ALERT MEDICATION, NOW) (23:23 09/01/2016 Michael Rasmussen) (Ack 23:42 ASchmuck) (23:46 ASchmuck) IV FLUIDS: ORDER SHEET NOTES: [Electronically signed by Karoline Garcia R.N. (01:07 09/02/2016)] [Electronically signed by Logan Garland Dr. (08:55 09/02/2016)] [Electronically locked/signed by Karoline Garcia R.N. (01:07 09/02/2016)]
--- NOTE | 2016-09-02 00:56 | ED CLINICAL REPORT ---
Clinical Report - Physicians/Mid Levels [facility] [address] [place] [address] 09/01/2016 22:27 Patient: DAVI MEDELLIN Time Seen: 22:54; initial patient contact. Arrived- By private vehicle. Historian- patient. HISTORY OF PRESENT ILLNESS Chief Complaint: ANXIOUS and MEDICATION REFILL. This started about 3 days ago. No situational problems or recent drug use or alcohol consumption. She has not exhibited a behavior change or is compliant with medication. Has not been sleeping. She has had anxiety. No unusual behavior, paranoia, delusions, suicidal thoughts or self-injury inflicted. No hallucinations. The symptoms are described as moderate. No injury is present. Additional history - H/O Bipolar D/O. Currently manic. Out of Clonazepam x 3 days. Similar symptoms previously: Recent medical care: Not recently seen/assessed. REVIEW OF SYSTEMS No chest pain, palpitations, vomiting or diarrhea. All systems otherwise negative, except as recorded above. PAST HISTORY ( Hypoglycemia. Chronic pain. Bipolar Disorder. Anxiety Reaction. Gastroesophageal Reflux Disease. Hypokalemia. Pain management. Insomnia. Mental Illness.. Bipolar Disorder. ADDITIONAL SURGERIES: (R) leg. Adenoidectomy. Tonsillectomy.). SOCIAL HISTORY Never smoker. No alcohol use or drug use. Has social support. Has place to stay. ADDITIONAL NOTES The nursing notes have been reviewed. PHYSICAL EXAM Vital Signs: 09/01/2016 22:54 BP: 144/70. HR: 84. RR: 14. O2 saturation: 100%. Temp: 98.1 F. Pain level now: 0/10. Have been reviewed. Hypertensive. Heart rate normal. Respiratory rate normal. Temperature normal. Oxygen saturation normal. Appearance: Alert. No acute distress. Appearance is normal. CVS: Normal heart rate and rhythm. Heart sounds normal. Respiratory: No respiratory distress. Breath sounds normal. Psych / Neuro: Oriented X 3. Mood and affect normal. Speech normal. Cognition normal. Thought process and content normal. Insight and judgement normal. PROGRESS AND PROCEDURES Course of Care: Anxiety much better w/ Ativan 1 mg PO. Disposition: Discharged home in good and improved condition. Condition: good. CLINICAL IMPRESSION Acute and chronic bipolar disorder. INSTRUCTIONS Your Current Medications: CONTINUE TAKING THE FOLLOWING MEDICATIONS: ClonazePAM Oral. Gabapentin Oral. LaMICtal Oral. Levoxyl Oral. NexIUM Oral : 20 mg daily. PROzac Oral. Prescription Medications: Clonazepam 1 mg tablet: Take 1 orally every 8 hours as needed for anxiety. Dispense fifteen (15). No refills. Follow-up: Follow up with your doctor in about three days. Call for an appointment. Screening today revealed the patient's blood pressure to be in the pre-hypertensive range. The patient should follow up with a primary care provider for blood pressure management. (Electronically signed by Logan Garland Dr. 09/02/2016 8:55)
--- NOTE | 2016-09-02 00:56 | ED ORDER SUMMARY ---
..... Patient: DAVI MEDELLIN OrderSheet [facility] VisitID: [id number] [address] [place] [address] 50y, F Registration Date/Time: 09/01/2016 ORDER SHEET Weight: 62.5 kg (stated) Allergies: Codeine, Morphine Sulfate GENERAL ORDERS: MEDICATION ORDERS: Ativan PO 1 mg (HIGH ALERT MEDICATION, NOW) (23:23 09/01/2016 Michael Rasmussen) (Ack 23:42 ASchmuck) (23:46 ASchmuck) IV FLUIDS: ORDER SHEET NOTES: [Electronically signed by Karoline Garcia R.N. (01:07 09/02/2016)] [Electronically signed by Logan Garland Dr. (08:55 09/02/2016)] [Electronically locked/signed by Karoline Garcia R.N. (01:07 09/02/2016)]
--- NOTE | 2016-09-02 08:55 | ED DISCHARGE INSTRUCTIONS ---
Patient: DAVI MEDELLIN General Instructions [facility] VisitID: [id number] [place] [address] 50y, F Registration Date/Time: 09/01/2016 Acute and chronic bipolar disorder. INSTRUCTIONS Your Current Medications: CONTINUE TAKING THE FOLLOWING MEDICATIONS: ClonazePAM Oral. Gabapentin Oral. LaMICtal Oral. Levoxyl Oral. NexIUM Oral : 20 mg daily. PROzac Oral. Prescription Medications: Clonazepam 1 mg tablet: Take 1 orally every 8 hours as needed for anxiety. Dispense fifteen (15). No refills. Follow-up: Follow up with your doctor in about three days. Call for an appointment. Screening today revealed the patient's blood pressure to be in the pre-hypertensive range. The patient should follow up with a primary care provider for blood pressure management. ADDITIONAL INFORMATION Bipolar Disorder Bipolar disorder (formerly called manic depression) is an illness that causes strong mood swings between depression and severino. This can interfere with work and relationships. In a manic episode, you may think fast and do things quickly. It may seem like you are getting a lot done. At first, this may feel very good; but in the extreme this can lead to a lifestyle that is disorganized, chaotic, and includes risky behavior (spending sprees, sexual acting-out, or drug use). In later stages, it may affect eating (no interest in food) and sleeping (unable to sleep for days at a time). Speech may speed up and become difficult for others to understand. You may appear to others as if you are in your own world. In a depressive episode, you may feel a lack of interest in normal activities. Sometimes there is sadness or guilt without any clear reason. Thinking may become slow and there can be a lack energy or feeling of hopelessness. Some people have thoughts of harming themselves at this stage. Thoughts can even turn to suicide. Between these two phases you may actually feel okay. This does not mean that the illness is gone. People with this disorder will usually have to treat it all of their life. Medication and good care can greatly reduce the symptoms. The exact cause of this illness is unknown. However, there is a genetic link that makes a person more likely to get this problem. Also, the use of drugs such as speed (amphetamine) and cocaine increase the chances of this illness appearing. Home Care: Be sure to take your medicine even if you think you dont need it. Talk with your family about your thoughts and feelings. Follow Up with your doctor or therapist as directed by our staff. They can help you to find ways to improve your life. For more information: The National [employer] on Mental Illness www.isaias.org 075-017-2738. Get Prompt Medical Attention if any of the following occur: Feeling like your symptoms are getting worse (depression, agitation, excess energy) Unable to eat or sleep for more than 48 hours Feeling out of control (racing thoughts, poor concentration) Feeling like you want to harm yourself or another Being unable to care for yourself Clonazepam Oral tablet What is this medicine? CLONAZEPAM (kloe NA ze dottie) is a benzodiazepine. It is used to treat certain types of seizures. It is also used to treat panic disorder. How should I use this medicine? Take this medicine by mouth with a glass of water. Follow the directions on the prescription label. If it upsets your stomach, take it with food or milk. Take your medicine at regular intervals. Do not take it more often than directed. Do not stop taking or change the dose except on the advice of your doctor or health ambulatory care. A special MedGuide will be given to you by the pharmacist with each prescription and refill. Be sure to read this information carefully each time. Talk to your patient services manager regarding the use of this medicine in children. Special care may be needed. What side effects may I notice from receiving this medicine? Side effects that you should report to your doctor or health ambulatory care as soon as possible: allergic reactions like skin rash, itching or hives, swelling of the face, lips, or tongue changes in vision confusion depression hallucinations mood changes, excitability or aggressive behavior movement difficulty, staggering or jerky movements muscle cramps, weakness tremors unusual eye movements Side effects that usually do not require medical attention (report to your doctor or health ambulatory care if they continue or are bothersome): constipation or diarrhea difficulty sleeping, nightmares dizziness, drowsiness headache increased saliva from your mouth nausea, vomiting What may interact with this medicine? herbal or dietary supplements medicines for depression, anxiety, or psychotic disturbances medicines for fungal infections like fluconazole, itraconazole, ketoconazole, voriconazole medicines for HIV infection or AIDS medicines for sleep prescription pain medicines propantheline rifampin sevelamer some medicines for seizures like carbamazepine, phenobarbital, phenytoin, primidone What if I miss a dose? If you miss a dose, take it as soon as you can. If it is almost time for your next dose, take only that dose. Do not take double or extra doses. Where should I keep my medicine? Keep out of the reach of children. This medicine can be abused. Keep your medicine in a safe place to protect it from theft. Do not share this medicine with anyone. Selling or giving away this medicine is dangerous and against the law. Store at room temperature between 15 and 30 degrees C (59 and 86 degrees F). Protect from light. Keep container tightly closed. Throw away any unused medicine after the expiration date. What should I tell my health care provider before I take this medicine? They need to know if you have any of these conditions: an alcohol or drug abuse problem bipolar disorder, depression, psychosis or other mental health condition glaucoma kidney or liver disease lung or breathing disease myasthenia gravis Parkinson's disease seizures or a history of seizures suicidal thoughts an unusual or allergic reaction to clonazepam, other benzodiazepines, foods, dyes, or preservatives or trying to get breast-feeding What should I watch for while using this medicine? Visit your doctor or health ambulatory care for regular checks on your progress. Your body may become dependent on this medicine. If you have been taking this medicine regularly for some time, do not suddenly stop taking it. You must gradually reduce the dose or you may get severe side effects. Ask your doctor or health ambulatory care for advice before increasing or decreasing the dose. Even after you stop taking this medicine it can still affect your body for several days. If you suffer from several types of seizures, this medicine may increase the chance of grand mal seizures (epilepsy). Let your doctor or health ambulatory care know, he or she may want to prescribe an additional medicine. You may get drowsy or dizzy. Do not drive, use machinery, or do anything that needs mental alertness until you know how this medicine affects you. To reduce the risk of dizzy and fainting spells, do not stand or sit up quickly, especially if you are an older patient. Alcohol may increase dizziness and drowsiness. Avoid alcoholic drinks. Do not treat yourself for coughs, colds or allergies without asking your doctor or health ambulatory care for advice. Some ingredients can increase possible side effects. The use of this medicine may increase the chance of suicidal thoughts or actions. Pay special attention to how you are responding while on this medicine. Any worsening of mood, or thoughts of suicide or dying should be reported to your health ambulatory care right away. Women who become while using this medicine may enroll in the [place]iepileptic Drug Registry by calling . This registry collects information about the safety of antiepileptic drug use during . You have been given the following additional information: Bipolar Disorder Clonazepam Oral tablet (Electronically signed by Logan Garland Dr. 09/02/2016 8:55)
--- NOTE | 2016-09-02 08:55 | ED MED RECONCILIATION SUMMARY ---
Patient: DAVI MEDELLIN Medication Reconciliation Report [facility] VisitID: [id number] [address] [place] [address] 50y, F Registration Date/Time: 09/01/2016 Weight: 62.5 kg Height/Length: 66 in. BMI: 22.3 ALLERGIES: Codeine, Morphine Sulfate The patient's Home Medications are listed below: CONTINUE TAKING THE FOLLOWING MEDICATIONS: ClonazePAM Oral Gabapentin Oral LaMICtal Oral Levoxyl Oral NexIUM Oral 20 mg, daily PROzac Oral The source(s) of the original Home Medication information: Not obtained. The following Medications were given to the patient in the Emergency Department: Ativan [PO] PO 1 mg, administered: 09/01/2016 11:46:00 PM The following Medications were prescribed to the patient: Clonazepam 1 mg tablet: Take 1 orally every 8 hours as needed for anxiety. Dispense fifteen (15). No refills. -- Logan Garland Dr.
--- NOTE | 2016-09-02 08:55 | ED MAR SUMMARY ---
..... Medication Administration Record [facility] [address] [place] [address] Patient: DAVI MEDELLIN Visit ID: [id number] 50y, F Weight: 62.5 kg Height/Length: 66 in BMI: 22.3 ALLERGIES: Codeine, Morphine Sulfate Given 23:46 09/01/2016 Nicolle Adams, Medication Administered: ATIVAN [PO] (LORAZEPAM), Dose: 1 mg Tablets PO. Medication Ordered: Ativan PO 1 mg (HIGH ALERT MEDICATION, NOW).
--- NOTE | 2016-09-02 08:55 | ED DISCHARGE INSTRUCTIONS ---
Patient: DAVI MEDELLIN General Instructions [facility] VisitID: [id number] [place] [address] 50y, F Registration Date/Time: 09/01/2016 Acute and chronic bipolar disorder. INSTRUCTIONS Your Current Medications: CONTINUE TAKING THE FOLLOWING MEDICATIONS: ClonazePAM Oral. Gabapentin Oral. LaMICtal Oral. Levoxyl Oral. NexIUM Oral : 20 mg daily. PROzac Oral. Prescription Medications: Clonazepam 1 mg tablet: Take 1 orally every 8 hours as needed for anxiety. Dispense fifteen (15). No refills. Follow-up: Follow up with your doctor in about three days. Call for an appointment. Screening today revealed the patient's blood pressure to be in the pre-hypertensive range. The patient should follow up with a primary care provider for blood pressure management. ADDITIONAL INFORMATION Bipolar Disorder Bipolar disorder (formerly called manic depression) is an illness that causes strong mood swings between depression and severino. This can interfere with work and relationships. In a manic episode, you may think fast and do things quickly. It may seem like you are getting a lot done. At first, this may feel very good; but in the extreme this can lead to a lifestyle that is disorganized, chaotic, and includes risky behavior (spending sprees, sexual acting-out, or drug use). In later stages, it may affect eating (no interest in food) and sleeping (unable to sleep for days at a time). Speech may speed up and become difficult for others to understand. You may appear to others as if you are in your own world. In a depressive episode, you may feel a lack of interest in normal activities. Sometimes there is sadness or guilt without any clear reason. Thinking may become slow and there can be a lack energy or feeling of hopelessness. Some people have thoughts of harming themselves at this stage. Thoughts can even turn to suicide. Between these two phases you may actually feel okay. This does not mean that the illness is gone. People with this disorder will usually have to treat it all of their life. Medication and good care can greatly reduce the symptoms. The exact cause of this illness is unknown. However, there is a genetic link that makes a person more likely to get this problem. Also, the use of drugs such as speed (amphetamine) and cocaine increase the chances of this illness appearing. Home Care: Be sure to take your medicine even if you think you dont need it. Talk with your family about your thoughts and feelings. Follow Up with your doctor or therapist as directed by our staff. They can help you to find ways to improve your life. For more information: The National [place] [employer] Mental Illness www.isaias.org 152-313-9944. Get Prompt Medical Attention if any of the following occur: Feeling like your symptoms are getting worse (depression, agitation, excess energy) Unable to eat or sleep for more than 48 hours Feeling out of control (racing thoughts, poor concentration) Feeling like you want to harm yourself or another Being unable to care for yourself Clonazepam Oral tablet What is this medicine? CLONAZEPAM (kloe NA ze dottie) is a benzodiazepine. It is used to treat certain types of seizures. It is also used to treat panic disorder. How should I use this medicine? Take this medicine by mouth with a glass of water. Follow the directions on the prescription label. If it upsets your stomach, take it with food or milk. Take your medicine at regular intervals. Do not take it more often than directed. Do not stop taking or change the dose except on the advice of your doctor or health dog daycare provider. A special MedGuide will be given to you by the pharmacist with each prescription and refill. Be sure to read this information carefully each time. Talk to your steel burner regarding the use of this medicine in children. Special care may be needed. What side effects may I notice from receiving this medicine? Side effects that you should report to your doctor or health dog daycare provider as soon as possible: allergic reactions like skin rash, itching or hives, swelling of the face, lips, or tongue changes in vision confusion depression hallucinations mood changes, excitability or aggressive behavior movement difficulty, staggering or jerky movements muscle cramps, weakness tremors unusual eye movements Side effects that usually do not require medical attention (report to your doctor or health dog daycare provider if they continue or are bothersome): constipation or diarrhea difficulty sleeping, nightmares dizziness, drowsiness headache increased saliva from your mouth nausea, vomiting What may interact with this medicine? herbal or dietary supplements medicines for depression, anxiety, or psychotic disturbances medicines for fungal infections like fluconazole, itraconazole, ketoconazole, voriconazole medicines for HIV infection or AIDS medicines for sleep prescription pain medicines propantheline rifampin sevelamer some medicines for seizures like carbamazepine, phenobarbital, phenytoin, primidone What if I miss a dose? If you miss a dose, take it as soon as you can. If it is almost time for your next dose, take only that dose. Do not take double or extra doses. Where should I keep my medicine? Keep out of the reach of children. This medicine can be abused. Keep your medicine in a safe place to protect it from theft. Do not share this medicine with anyone. Selling or giving away this medicine is dangerous and against the law. Store at room temperature between 15 and 30 degrees C (59 and 86 degrees F). Protect from light. Keep container tightly closed. Throw away any unused medicine after the expiration date. What should I tell my health care provider before I take this medicine? They need to know if you have any of these conditions: an alcohol or drug abuse problem bipolar disorder, depression, psychosis or other mental health condition glaucoma kidney or liver disease lung or breathing disease myasthenia gravis Parkinson's disease seizures or a history of seizures suicidal thoughts an unusual or allergic reaction to clonazepam, other benzodiazepines, foods, dyes, or preservatives or trying to get breast-feeding What should I watch for while using this medicine? Visit your doctor or health dog daycare provider for regular checks on your progress. Your body may become dependent on this medicine. If you have been taking this medicine regularly for some time, do not suddenly stop taking it. You must gradually reduce the dose or you may get severe side effects. Ask your doctor or health dog daycare provider for advice before increasing or decreasing the dose. Even after you stop taking this medicine it can still affect your body for several days. If you suffer from several types of seizures, this medicine may increase the chance of grand mal seizures (epilepsy). Let your doctor or health dog daycare provider know, he or she may want to prescribe an additional medicine. You may get drowsy or dizzy. Do not drive, use machinery, or do anything that needs mental alertness until you know how this medicine affects you. To reduce the risk of dizzy and fainting spells, do not stand or sit up quickly, especially if you are an older patient. Alcohol may increase dizziness and drowsiness. Avoid alcoholic drinks. Do not treat yourself for coughs, colds or allergies without asking your doctor or health dog daycare provider for advice. Some ingredients can increase possible side effects. The use of this medicine may increase the chance of suicidal thoughts or actions. Pay special attention to how you are responding while on this medicine. Any worsening of mood, or thoughts of suicide or dying should be reported to your health dog daycare provider right away. Women who become while using this medicine may enroll in the [place] Drug Registry by calling . This registry collects information about the safety of antiepileptic drug use during . You have been given the following additional information: Bipolar Disorder Clonazepam Oral tablet (Electronically signed by Logan Garland Dr. 09/02/2016 8:55)
--- NOTE | 2016-09-02 08:55 | ED MAR SUMMARY ---
..... Medication Administration Record [facility] [address] [place] [address] Patient: DAVI MEDELLIN Visit ID: [id number] 50y, F Weight: 62.5 kg Height/Length: 66 in BMI: 22.3 ALLERGIES: Codeine, Morphine Sulfate Given 23:46 09/01/2016 Nicolle Adams, Medication Administered: ATIVAN [PO] (LORAZEPAM), Dose: 1 mg Tablets PO. Medication Ordered: Ativan PO 1 mg (HIGH ALERT MEDICATION, NOW).
--- NOTE | 2016-09-02 08:55 | ED MED RECONCILIATION SUMMARY ---
Patient: DAVI MEDELLIN Medication Reconciliation Report [facility] VisitID: [id number] [address] [place] [address] 50y, F Registration Date/Time: 09/01/2016 Weight: 62.5 kg Height/Length: 66 in. BMI: 22.3 ALLERGIES: Codeine, Morphine Sulfate The patient's Home Medications are listed below: CONTINUE TAKING THE FOLLOWING MEDICATIONS: ClonazePAM Oral Gabapentin Oral LaMICtal Oral Levoxyl Oral NexIUM Oral 20 mg, daily PROzac Oral The source(s) of the original Home Medication information: Not obtained. The following Medications were given to the patient in the Emergency Department: Ativan [PO] PO 1 mg, administered: 09/01/2016 11:46:00 PM The following Medications were prescribed to the patient: Clonazepam 1 mg tablet: Take 1 orally every 8 hours as needed for anxiety. Dispense fifteen (15). No refills. -- Logan Garland Dr.
== END 2016-09-02 01:04 | disposition home or self-care (01) ==
LOC: ED SRH 22:25
DX: F31.89 Other bipolar disorder (principal); Z79.899 Other long term (current) drug therapy; Z76.0 Encounter for issue of repeat prescription